=== PATIENT | female | born 1980 | race Caucasian/White ===

== ENCOUNTER → 2023-12-27 11:28 | Outpatient (REF) | payer BC, SELFPAY | LOC: WDC 11:28 | PROVIDERS: ATTENDING PHYSICIAN Obstetrics & Gynecology | DX: Z12.31 Encounter for screening mammogram for malignant neoplasm of breast (principal) | CPT/HCPCS: 77063; 77067 ==

== ENCOUNTER 2024-11-13 12:17 | Emergency (ER) | payer BC, SELFPAY ==
[2024-11-13 12:28] VITALS: BP 114/62
[2024-11-13 12:48] LABS: Hematocrit 35.9 % (37.0-47.0); Hemoglobin 12.1 g/dL (12.0-16.0); Mean Corp Hgb Conc. 33.7 g/dL (33.0-37.0); Mean Corpuscular Volume 85.7 fL (81.0-99.0); Nucleated Red Blood Cells % 0 %; Platelet Count 215 10^3/uL (130-400); Red Cell Dist. Width 12.2 % (11.5-14.5)
[2024-11-13 12:55] LABS: APTT 25.1 Sec (23.4-35.0)
[2024-11-13 13:10] LABS: Troponin I < 0.012 ng/ml
[2024-11-13 13:16] LABS: ALT (SGPT) 18 U/L (0-35); AST (SGOT) 21 U/L (14-36); Albumin 4.5 g/dl (3.5-5.0); Alkaline Phosphatase 35 U/L (38-126); Blood Urea Nitrogen 13 mg/dl (7-17); Calcium 9.4 mg/dl (8.4-10.2); Carbon Dioxide 26 mmol/L (22-30); Chloride 107 mmol/L (98-107); Glucose 106 mg/dl (70-99); Potassium 4.1 mmol/L (3.5-5.1); Sodium 138 mmol/L (135-145); Total Protein 7.2 g/dl (6.3-8.2); eGFR > 60.00
[2024-11-13 15:09] VITALS: BP 104/63
--- NOTE | 2024-11-13 15:59 | ED.GENMED ---
History of Present Illness
General
Chief Complaint: Chest Pain
Source: patient
Exam Limitations: none
Time Seen by Provider: 11/13/24 15:18
History of Present Illness
History of Present Illness:
Patient was playing volleyball yesterday. While leaning over to peanut picker the ball developed sudden left-sided chest pain. Worse with breathing. Lasted about 30 minutes. Recurred later while playing volleyball again again while bending over. Had
a brief episode this morning. This was while leaning over to kiss her . Has some mild dull symptoms since then. No shortness of breath no nausea no diaphoresis no radiation. No upper back pain. She has had this occasionally in the past
but not quite as severe.
Past History
Past History
ED Past Medical History: None
ED Past Surgical History: Orthopedic (Left knee)
Social History
Tobacco: Non-smoker
Alcohol: None
Drug: None
Personal:
Living: with family
Employment: Employed (Desk work)
Family History
Family History: Other (Noncontributory)
Review of Systems
Review of Systems
All Other Systems: Not applicable
Constitutional: Denies fever
Respiratory: Denies trouble breathing
ABD/GI: Reports no symptoms
Phy Exam
Physical Exam
Physical Exam:
GENERAL: Alert and oriented in no apparent distress
EYE: Orbits normal.
NECK: Supple, no significant adenopathy.
ENT: Pharynx without erythema
CARDIAC: Regular rate and rhythm without any obvious murmurs.
LUNGS: Clear breath sounds,normal
ABDOMEN: Soft, without focal tenderness or distention
NEUROLOGICAL: Alert and oriented , grossly non-focal
SKIN: Warm and dry, no rash or lesion, no discoloration, skin intact.
MUSCULOSKELETAL: No edema,no deformity.Good color
PSYCH: Normal and appropriate interaction.
Scores
Heart Score for Chest Pain Patients
STEMI patient?: No
History: Slightly or Non-Suspicious
ECG: Normal
Age: </= 45 years
Risk Factors: No Risk Factors
Troponin: </= Normal Limit
Heart Score for Chest Pain Patients: 0
Heart Score Risk: 2.5% MACE over next 6 weeks
Course
Orders/Labs/Results
Orders:
Orders
11/13/24 12:18
EKG [Electrocardiogram (*1)] Urgent
Reason for Study: Chest Pain
EKG- Treatment ONCE
11/13/24 12:32
EKG- Treatment ONCE
11/13/24 12:38
Complete Blood Count/With Diff Urgent
Comprehensive Metabolic Panel Urgent
D-Dimer Urgent
Comment: ADD ON
HCG, Serum Qualitative Screen Urgent
Comment: ADD ON
Lyme Progressive Urgent
Comment: ADD ON
NT-proBNP Urgent
PTT Urgent
Troponin I Urgent
11/13/24 15:33
Add On- LAB Urgent
Tests Added?: qual bhcg
CXR2 [CR Chest - 2 Views ] Urgent
Comment:
Reason For Exam: cp
11/13/24 15:35
Electrocardiogram (*1) Stat
Reason for Study: Other
Other Reason for Exam: chest pain
EKG- Treatment ONCE
11/13/24 15:59
Add On- LAB Urgent
Tests Added?: D-Dimer
Add On- LAB Urgent
Tests Added?: lyme progressive
11/13/24 16:55
Troponin I Urgent
Abnormal Lab Results
11/13/24
12:38
RBC 4.19 L 10^6/uL
(4.20-5.40)
Hct 35.9 L %
(37.0-47.0)
Monocytes % 9.7 H %
(1.7-9.3)
Glucose 106 H mg/dl
(70-99)
Alkaline Phosphatase 35 L U/L
(38-126)
11/13/24 12:38
11/13/24 12:38
Vital Signs
Initial and Last Documented VS:
Initial Vital Signs
Temp Pulse Resp BP Pulse Ox
98.3 F 53 20 114/62 98
11/13/24 12:28 11/13/24 12:28 11/13/24 12:28 11/13/24 12:28 11/13/24 12:28
Last Documented Vital Signs
Temp Pulse Resp BP Pulse Ox
98.3 F 64 16 104/93 100
11/13/24 12:28 11/13/24 16:15 11/13/24 16:15 11/13/24 16:00 11/13/24 17:53
MDM/Problems Addressed
Differential Diagnosis Includes:
Patient with no cardiac risk factors. Atypical pain. Pain is more typical of either pleuritic or musculoskeletal issues. Doubt pneumothorax. Breath sounds are equal. Chest x-ray is negative. D-dimer is negative. Cardiac testing negative x 2.
Patient exercises regular without issues. Stable for discharge to follow-up
*Pulse Oximetry
SaO2: 100
Oxygen Mode of Delivery: Room air
Patient hypoxic: no (98)
*Critical Care Note
Total Time (30-74mins, 75-104mins- exclusive of procedures): Not Applicable
Update Note
Update Note:
1750... Repeat EKG sinus bradycardia at 52. No acute changes. Patient is remained stable and nontoxic. No significant cardiac risk factors. Atypical pleuritic-like pain. Started with bending over and repeated again with bending over. States
she has had this occasionally in the past also. Low suspicion for pulmonary emboli. Negative D-dimer. Stable for discharge to follow-up
ED Attending Note
-
Portions of this chart may have been created with voice recognition software.� Occasional wrong word or��sound alike� substitutions may have occurred due to the inherent limitations of voice recognition software.
Discharge Plan
Departure
Patient Disposition: Home (Routine Discharge)
Date of Disposition: 11/13/24
Time of Disposition: 17:52
Patient with high blood pressure during this ER visit?: Yes
Discharge Problem:
Anterior chest pain
Instructions: Chest Pain PCP Follow Up
Prescriptions:
No Action
epinephrine [EpiPen] 0.3 MG/0.3/SYRINGE auto-injector
0.3 mg IM PRN PRN (Reason: allergic reaction) Qty: 1 5RF
prednisone 10 mg Tablet
See Rx Instructions .ROUTE .COMPLEX Qty: 45 0RF
Rx Instructions:
Take By Mouth:
50 mg daily x3 days, 40 mg daily x3 days,
30 mg daily x3 days, 20 mg daily x3 days,
10 mg daily x3 days
hydrocodone-acetaminophen 5-300 mg tablet
1 tab PO QIDPRN PRN (Reason: Pain) Qty: 20 0RF
Referrals:
Anish Srinivasan MD [Family Provider, Family Practice] - Follow up in 2-3 days
Interventions
Interventions:
*Risk Screen - Suicide Last Done: 11/13/24 16:27
*General Assessment Last Done: 11/13/24 12:28
*Neglect/Abuse Screening Last Done: 11/13/24 16:27
*ED- Fall Risk Assessment Last Done: 11/13/24 16:27
*ED COVID-19 Vaccine History Last Done: 11/13/24 16:27
ED- Cardiac Assessment Last Done: 11/13/24 16:26
Discharge Date and Time
Print Language: [email or web address]
[2024-11-13 16:00] VITALS: BP 104/93
[2024-11-13 16:16] LABS: HCG, Serum Qualitative Screen Negative
[2024-11-13 16:48] VITALS: BP 99/67
[2024-11-13 17:00] VITALS: BP 100/65
[2024-11-13 17:25] LABS: D-Dimer < 0.27 ug/mlFEU (0.00-0.50)
[2024-11-13 17:26] LABS: Troponin I < 0.012 ng/ml
[2024-11-13 18:00] VITALS: BP 101/69
== END 2024-11-13 18:35 | disposition home or self-care (01) ==
LOC: EMR 12:17
PROVIDERS: Student in an Organized Health Care Education/Training Program; EMERGENCY PHYSICIAN Emergency Medicine; FAMILY PHYSICIAN Family Medicine
DX: R07.89 Other chest pain (principal); R00.1 Bradycardia, unspecified
CPT/HCPCS: 99285; 71046; 80053; 83880; 84484; 84703; 85025; 85379; 85730; 86618; 93005